=== PATIENT | female | born 1970 | race Caucasian/White ===

== ENCOUNTER 2018-07-15 11:11 | Day surgery (SDC) | payer OTHER ==
[~2018-07-15] VITALS: Ht 167.6 cm; Wt 74.1 kg
[2018-07-15 11:49] VITALS: Ht 167.6 cm; Wt 74.1 kg
[2018-07-15] MEDS ORDERED: METOPROLOL (11:54)
[2018-07-15 12:33] VITALS: BP 125/83; PULSE 58; RESP 16
--- NOTE | 2018-07-15 13:19 | PREAC ---
Date/Time of Note Date/Time of Note DATE: 07/15/18 TIME: 13:17 Anesthesia Eval and Record Evaluation Time Pre-Procedure Interview DATE: 07/15/18 TIME: 13:17 Age 47 Sex female NPO: 8 hrs Preoperative diagnosis screening Planned procedure colonoscopy Past Medical History Past Medical History: Includes Cardio: HTN Surgery & Anesthesia Issues No known issue Meds Anticoagulation: Yes Beta Ophelia within 24 hr: Yes Reason Beta Ophelia not given: Pt. not on B-Ophelia Reported Medications [Metoprolol] No Conflict Check 07/15/18 Meds reviewed: Yes Allergies Coded Allergies: codeine (Verified Allergy, Unknown, 09/11/14) Allergies Reviewed: Yes Labs/Studies Labs Reviewed: Reviewed by anesthesiologist test: Negative Pre-procedure Exam Last vitals Vital Signs Date Temp Pulse Resp B/P (MAP) Pulse Ox O2 O2 Flow FiO2 Time Delivery Rate 07/15/18 99.0 58 16 125/83 98 Room Air 12:33 (97) Airway: Adequate mouth opening, Adequate thyromental dist Mallampati: Mallampati II Teeth: Normal Lung: Normal Heart: Normal ASA Physical Status ASA physical status: 2 Emergency: None Planned Anesthetic General/MAC: MAC Pre-operative Attestations Prior to commencing anesthesia and surgery, the patient was re-evaluated, there was verification of: *The patient's identity *The results of appropriate recent lab work and preoperative vital signs *The above evaluation not changing prior to induction *Anesthetic plan, risk benefits, alternative and complications discussed with patient/family; questions answered; patient/family understands, accepts and wishes to proceed. BERRY BARFIELD Jul 15, 2018 13:19
[2018-07-15] MEDS ORDERED: ONDANSETRON 4 MG INJ IV PRN (13:30)
[2018-07-15] MEDS ORDERED: ALBUTEROL 0.083% (NEB) 2.5 MG/3 ML AMP HHN PRN (13:30)
[2018-07-15] MEDS ORDERED: FENTAnyl 50 MCG/ML VIAL IV PRN (13:30)
[2018-07-15] MEDS ORDERED: ACETAMINOPHEN 500 MG TAB PO PRN (13:30)
[2018-07-15] MEDS ORDERED: LIDOCAINE 2% (SDV) 5 ML INJ ONE (13:40)
[2018-07-15] MEDS ORDERED: PROPOFOL 40 ML ONE (13:40)
--- NOTE | 2018-07-15 14:01 | PAC ---
Date/Time of Note Date/Time of Note DATE: 07/15/18 TIME: 14:01 Post-Anesthesia Notes Post-Anesthesia Note Last documented vital signs Vital Signs Date Temp Pulse Resp B/P (MAP) Pulse Ox O2 O2 Flow FiO2 Time Delivery Rate 07/15/18 99.0 58 16 125/83 98 Room Air 14:33 (97) Activity: WNL Respiratory function: WNL Cardiovascular function: WNL Mental status: Baseline Pain reasonably controlled: Yes Hydration appropriate: Yes Nausea/Vomiting absent: Yes ZARA HOBSON MD Jul 15, 2018 14:01
== END 2018-07-15 16:09 | disposition home or self-care (01) ==
LOC: GIL 11:11
PROVIDERS: ATTEND Internal Medicine
DX: Z12.11 Encounter for screening for malignant neoplasm of colon (principal); K64.8 Other hemorrhoids; I10 Essential (primary) hypertension